=== PATIENT | female | born 1940 | race Caucasian/White ===

== ENCOUNTER → 2018-04-07 11:42 | Outpatient (CLI) | payer MEDICARE, BC, SELFPAY ==
[2018-04-07 11:52] VITALS: BP 131/68; PULSE 60; RESP 16; TEMP 36.8; BMI 35.5
[2018-04-07 12:51] VITALS: BP 139/67; PULSE 62; RESP 16; TEMP 36.5
[2018-04-07 14:43] VITALS: BP 123/63; PULSE 61; TEMP 36.6
[2018-04-07 14:58] VITALS: BP 143/72; PULSE 59; TEMP 36.6
== END ==
LOC: LAB 11:13 → MEDOUTP 11:26
PROVIDERS: Family Provider Student in an Organized Health Care Education/Training Program; PCP Student in an Organized Health Care Education/Training Program; Visit Provider Student in an Organized Health Care Education/Training Program
DX: D50.9 Iron deficiency anemia, unspecified (principal)
CPT/HCPCS: 36415; 36430; 86850; 86900; 86920; 86922; J7040; P9016; A4216

== ENCOUNTER 2018-06-18 11:00 | Outpatient (RCR) | payer MEDICARE, BC, SELFPAY ==
--- NOTE | 2018-04-19 11:35 | HP.PTEVAL ---
Patient's Visit Information ALANNA MOSHER is a 78 year old F referred to Physical Therapy by Mark Jaime with a diagnosis of Sciatica. Date of Evaluation: 04/19/18 Physical Therapist: Toshia Ray - Visit Plan Frequency: 2x /Week Duration: 4 Weeks Plan: Focus on core s/s - Subjective Subjective: Sciatic nerve pain that started in January when she was in [place]. Dr. Jaime put her on Prednisone which helped. In the afternoon and evening its really bad. Left sided-- pain is locate din the hip and goes to the ankle on the outside of the leg. Use to take 2 Aleve in the AM- but now she has to be Iron pills intead. Sleep: when she lays down she is okay- but when she is up and moving is when it bothes her. Best: 0/10 Eases: sitting, laying down, Worst: 8/10 Agg: being on her feet for long periods of time, going up/down stais she needs to hang on. She was walking with a cane in [place] but it doesn't do that now. Use to work out at [employer] but she hasn;t been due to worries of increasing pain. Thinks that standing on one foot really hurt it [facility] [place]. No back pain associate with this- or ever. She had x-rays of the hip and the back nd they both showed significant arthritis- the discs are flat. No N/T in the feet- describes the pain as dull and achy with shooting at the end of the day. Does not want to do aquatic therapy. She would like to get back to [employer]- the medium one where you sit and stand. PMHx: HTN. Cholesterol Meds: zocor and can't remember the names of the others. Normal day for her is a lot of sitting- sedentary lifestyle. Fully I and does still drive- lives alone. - Objective Posture: FH, RS, Increased kyphosis- decreased lumbar lordosis. Gait: antalgic- decreased stance time bilateral with wide RAZIA-flat foot strike. HR/TR: able with UE A for balance. SLS: WS but unable to SLS- requires UE A. ROM: Lumbar: flexion: hands to knees with discomfort, extn: neutral, SB and rotation: WFL, Hip: WNL, Knee: WNL, Ankle: WNL. Sensation/Reflex: WNL. Strength: Ankle: 5/5, Knee: 4+/5, Hip: 4/5 Core:poor. Flex: HS: moderate, Gastroc: moderate. Bridge increased s/s down LE- when stopped the pain went away immediatly. Dural Signs: positive on the left. Slump Test:positive on the left - Goals Goal 1:: Patient will be I with HEP and progression Goal Time Frame: 4-6 Weeks Goal 2:: Patient will maintain proper posture t/o tx session to demo increased core s/s Goal Time Frame: 4-6 Weeks Goal 3:: Patient will report 0/10 pain in the left LE for 1 week Goal Time Frame: 4-6 Weeks - Rehabilitation Potential Physical Therapy Diagnosis: Patient presents with hypomobility- she has decreased strength and muscular endurnace laeding to poor posture and increased pain Rehabilitation Potential: Fair - Anticipated Interventions Patient/Client Instruction: Educate patient on: Benefits of Fitness Program For the Purpose of:: To improve ability to perform ADL's Therapeutic Exercise to Include: Strength training, Endurance training, Body mechanics, Postural training, Flexibilty training, Dynamic Lumbar Stabilization, Scapular Strength/Stabilization For the Purpose of:: To improve muscle performance and motor function TENS: Yes Cryotherapy (ice pack, ice massage): Yes Thermo therapy (hot pack): Yes Ultrasound (thermal/non thermal): Yes For the Purpose of:: To decrease pain Thank you for the opportunity to evaluate your patient. For Medicare and Medicare HMO plans, please review the plan of care and approve it. It will need to be FAXED BACK to us at [phone] for Medicare purposes. Please let me know if there are questions or concerns regarding this plan of care. Physician Signature: Date:
--- NOTE | 2018-05-27 16:40 | HP.PTREVAL_ITS ---
Mark Jaime, It has been my pleasure to treat ALANNA MOSHER over the last 8 visits for Sciatica. Please see the progress note below for an update on the physical therapy plan of care! Subjective: Patient reports that she went to [place] yesterday and she was able to do more then had to sit down throughout. When she rests for awhile she can walk further. Pain is located on the hip in the left side down to the knee. Was doing silver sneakers before (Nustep, hip abd, add, leg press, back extn). Objective/Function: Posture: FH, RS, Increased kyphosis- decreased lumbar lordosis. Gait: antalgic- decreased stance time bilateral with wide RAZIA-flat foot strike bilaterally. HR/TR: able with UE A for balance. SLS: WS but unable to SLS- requires UE A from plinth. ROM: Lumbar: flexion: hands to knees with discomfort, extn: neutral, SB and rotation: WFL, Hip: WNL, Knee: WNL, Ankle : WNL. Sensation/Reflex: WNL. Strength: Ankle: 5/5, Knee: 4+/5, Hip: 4/5 Core: fair. Flex: HS: moderate, Gastroc: moderate. Dural Signs: positive on the left. Slump Test:positive on the left Plan Plan: Continue 2x2 for HEP with gym Goals Goal 1:: Patient will be I with HEP and progression Goal Time Frame: 4-6 Weeks Goal Progress: Progressing Goal 2:: Patient will maintain proper posture t/o tx session to demo increased core s/s Goal Time Frame: 4-6 Weeks Goal Progress: Progressing Goal 3:: Patient will report 0/10 pain in the left LE for 1 week Goal Time Frame: 4-6 Weeks Goal Progress: Not Progressing Anticipated Interventions Patient/Client Instruction: Educate patient on: Benefits of Fitness Program For the Purpose of:: To improve ability to perform ADL's Therapeutic Exercise to Include: Strength training, Endurance training, Body mechanics, Postural training, Flexibilty training, Dynamic Lumbar Stabilization , Scapular Strength/Stabilization For the Purpose of:: To improve muscle performance and motor function TENS: Yes Cryotherapy (ice pack, ice massage): Yes Thermo therapy (hot pack): Yes Ultrasound (thermal/non thermal): Yes For the Purpose of:: To decrease pain Please do not hesitate to contact me at [phone] by phone or Fax: if you have questions or concerns regarding this new plan of care! Sincerely, Toshia Ray
--- NOTE | 2018-06-21 07:12 | HP.PTDCSUM ---
HP - PT D/C Summary It has been my pleasure to treat ALANNA MOSHER under orders from Mark Jaime, for the diagnosis of Sciatica for a total of 12 visit(s). Discharge Date: Please see the following information for a summary of their discharge status. - Subjective Subjective: Got started on nustep on her own today prior to appt. DOING WELL TODAY THUS FAR PT REPORTS. - Pain LB Pain Intensity (Out of 10): Unrated - Objective Objective/Function: PT FEELS GOOD ABOUT INDEPENDENT PROGRAM AND FEELS READY FOR D/C. OVERALL PT FEELS SHE HAS BENEFITTED FROM P.T. AND REPORTS FEELING 75% IMPROVED. - Goals Goal 1:: Patient will be I with HEP and progression Goal Progress: Progressing Goal 2:: Patient will maintain proper posture t/o tx session to demo increased core s/s Goal Progress: Progressing Goal 3:: Patient will report 0/10 pain in the left LE for 1 week Goal Progress: Not Progressing - Plan Plan: PT IS D/C OF TODAY. SENT THER EX LOG WITH HER ALONG WITH PICS OF STRETCHES TO CONT WITH. - D/C Information If there are questions or concerns regarding this patient's physical therapy, please feel free to call me at [phone]. Thank you for the referral of this patient. Sincerely, Toshia Ray
== END 2018-06-18 19:00 | disposition home or self-care (01) ==
LOC: PT 11:00
PROVIDERS: Family Provider Student in an Organized Health Care Education/Training Program; PCP Student in an Organized Health Care Education/Training Program; Visit Provider Student in an Organized Health Care Education/Training Program
DX: M54.42 Lumbago with sciatica, left side (principal); M47.896 Other spondylosis, lumbar region; M79.652 Pain in left thigh; M51.36 Other intervertebral disc degeneration, lumbar region; G89.29 Other chronic pain
CPT/HCPCS: 97110; 97161; 97164; G8978; G8979

== ENCOUNTER 2019-05-21 10:19 | Emergency (ER) | payer MEDICARE, BC, SELFPAY ==
[2019-05-21 10:20] VITALS: BP 160/78; PULSE 78; RESP 18; TEMP 36.6; O2SAT 96; BMI 36.6
--- NOTE | 2019-05-21 10:39 | ED.DCSUM_ITS ---
- ER Visit Summary Date of Service: 05/21/19 Chief Complaint: Blood in stool History of Present Illness: The patient is a 79 F states that she was in her normal state of health yesterday. She the country club and had a [place] consisted of cooked shrimp. She returned home and around 8 PM developed abdomi nal cramping in the suprapubic left lower quadrant area. She states she went to the bathroom had a normal bowel movement. The cramps continued and she had a small bowel movement around midnight. Throughout the night she had intermittent cramps that would awaken her. She states that this morning she had a large movement that consisted of all red blood followed by a smaller one and then a third episode with very little blood and no stool. She has not had any further abdominal cramping and no pain. She is never had a prior colonoscopy. She states that she is never had a diagnosis of colitis or diverticulitis. She used to take aspirin but stopped. 6 months ago she had a blood transfusion due to iron deficiency anemia. No lightheadedness or syncope. Color is not different than normal. She denies any history of AAA repair. No recent indigestion or reflux disease history. Physical Examination: Afebrile vital signs are stable Gen: Well-nourished well-developed Head: Normocephalic atraumatic Eyes: Perrl EOMI ENT: TMs clear no rhinorrhea moist mucous membranes Neck: Supple no lymphadenopathy no JVD nontender CVS: Regular rate rhythm no murmurs normal S1-S2 Respiratory: No distress clear to auscultation bilaterally chest nontender Abdomen: Soft nontender nondistended normal bowel sounds no masses Rectal: Small amount of residual bright red blood on the buttocks otherwise rectal exam showed no stool and no blood on digital exam. There is no noted anal fissure. Small anal tag. No masses. Back: Nontender Extremity: Nontender no edema Skin: Normal color no rash Neuro: alert orientated ?3 CN II-XII intact normal strength sensation Psych: Normal affect normal mood Test Results: CBC BMP was obtained as well as coags. These were negative. Emergency Department Course and Treatment: Patient was watched for about 2-1/2 hours. She has had no further bleeding. No abdominal cramping. At this point the exact etiology of her bleeding is unclear. However at this point she appears stable with a stable hemoglobin and normal blood pressures and no further bleeding. Patient was advised the possible etiologies such as diverticular bleeding, AV malformation, versus infectious. Patient was advised that if she develops further symptoms she should return for repeat examination. Impression: 1. Stable lower GI bleed This note was generated with [employer] dictation software. It may contain incorrect words, spelling, and punctuation that were not noted in review of the chart prior to signing ED Disposition - Plan for ED Patient: Disposition: Home or Assisted Living Instructions: When You Have Gastrointestinal (GI) Bleeding Referrals: Mark Jaime, [Primary Care Provider] - As soon as possible (discuss colonoscopy )
[2019-05-21 11:00] LABS: Absolute Lymphocyte Count 1.72 X10^3/ul (0.83-4.51); Basophil# 0.02 X10^3/uL; Basophil% 0.2 % (0-1); Eosinophil# 0.06 X10^3/uL; Eosinophils% 0.6 % (0-5); Hematocrit 40.8 % (37-47); Hemoglobin 13.5 g/dl (12.0-15.0); Lymphocyte # 1.72 X10^3/ul (4.0); Lymphocyte % 16.1 % (19-41); Mean Corp Hgb Conc 33.1 g/gl (32-36); Mean Corpuscular Hgb 30.6 pg (27.0-32.0); Mean Corpuscular Volume 92.5 fL (81-99); Mean Platelet Vol. 10.9 fl (6.2-12.0); Monocyte# 0.89 X10^3/uL; Monocyte% 8.3 % (0-10); Neutrophil # 7.97 X10^3/uL (2.7-7.7); Neutrophil % 74.7 % (47-70); POSITIVE COUNT NO; POSITIVE DIFFERENTIAL NO; POSITIVE MORPHOLOGY NO; Platelet Count 203 K/mm3 (150-450); RBC Distribution Width CV 14.2 % (11.6-14.6); RBC Distribution Width SD 47.2 fl (35.1-43.9); Red Blood Count 4.41 M/mm3 (4.2-5.4); White Blood Count 10.7 K/mm3 (4.4-11.0)
[2019-05-21 11:22] LABS: Anion Gap 5 (5-15); BUN 19 mg/dL (7-18); BUN/Creat Ratio 19.3 RATIO (10-20); Chloride 107 mmol/L (98-107); Creatinine, Serum 0.98 mg/dL (0.55-1.02); EST Glomerular Filtration Rate 58 mL/min (>60); Est Glom Filt Rate - Afr Amer 70 mL/min (>60); Estimated Creatinine Clearance 42.15 ml/min; Glucose 115 mg/dL (74-106); Potassium 4.5 mmol/L (3.5-5.1); Sodium Level 139 mmol/L (136-145)
[2019-05-21 11:31] LABS: Partial Thromboplast Time 28.7 Seconds (24.1-36.2); Prothrombin Time (Protime)PT. 12.9 SECONDS (11.7-14.9)
[2019-05-21 11:48] VITALS: BP 155/83; BP 164/73; PULSE 68; PULSE 87
[2019-05-21 13:25] VITALS: BP 155/83; PULSE 87; RESP 19
== END 2019-05-21 13:26 | disposition home or self-care (01) ==
PROVIDERS: Emergency Provider Emergency Medicine; Family Provider Student in an Organized Health Care Education/Training Program; PCP Student in an Organized Health Care Education/Training Program
DX: K92.1 Melena (principal); K64.4 Residual hemorrhoidal skin tags; R10.32 Left lower quadrant pain; D50.9 Iron deficiency anemia, unspecified; I10 Essential (primary) hypertension; E78.00 Pure hypercholesterolemia, unspecified; Z79.899 Other long term (current) drug therapy; Z87.891 Personal history of nicotine dependence
CPT/HCPCS: 80048; 85025; 85610; 85730; 99284; A4216

== ENCOUNTER 2022-07-02 10:30 | Outpatient (RCR) | payer MEDICARE, BC, SELFPAY ==
--- NOTE | 2022-05-16 10:56 | HP.PTEVAL_ITS ---
Patient's Visit Information ALANNA MOSHER is a 82 year old F referred to Physical Therapy by Dr. Mark Jaime DO with a diagnosis of CHRONIC DARRION KNEE PAIN AND LEG WEAKNESS. Date of Evaluation: 05/16/22 Physical Therapist: Jessica Jones PT, Cert MDT - Visit Plan Frequency: 2-3x /Week Duration: 4-6 Weeks Plan: GAIT AND BALANCE TRAINING (NO SLS ACTIVITIES PER PATIENT REQUEST). ASSISTIVE DEVICE TRAINING FOR SAFETY. CORE STABILITY STRENGTHENING. DARRION LE ROM, STRETCHING AND STRENGTHENING TO HELP MEET SET GOALS. GIVE GYM AND HEP TOLERATED. - Subjective Work/Leisure: RETIRED. 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 LIVES IN [place] 6 MONTHS A YEAR. Present symptoms: DARRION KNEE PAIN AND LEG WEAKNESS. PATIENT DENIES DARRION LE NUMBNESS AND TINGLING. Present since: CHRONIC. Pain Scale: WORST 5/10, LEAST 0/10. Currently: 0/10. Commenced as a result of: ARTHRITIS. Worse: TRYING TO BEND KNEES HURT, STANDING AND WALKING IS DIFFICULT, RISING FROM SITTING IS DIFFICULT TOO. HARD TO GET OUT OF BED. DIFFICULTY INITIATING GAIT AFTER SITTING. Better: SITTING. Disturbed sleep: NOT REALLY. SOMETIMES WAKES UP WITH IT. Previous history/Previous treatment: DARRION KNEE INJECTIONS X 2, 6 MONTHS APART AND LAST INJECTIONS WERE 3 WEEKS AGO. THEY HELP THE PAIN AT NIGHT BUT DOESN'T HELP MVMT. NO KNEE SURGERIES. SHE REPORTS TKR'S HAVE BEEN RECOMMENDED BUT SHE REFUSES. TAKES TYLONOL DAILY FOR THE PAIN. Gait: PATIENT REPORTS SHE HAS TO GO SLOW WHEN SHE WALKS AND SHE TRIES NOT TO SHUFFLE. DIFFICULTY INITIATING GAIT AFTER SITTING. USES CANE TO GO TO [employer] BUT OTHERWISE DOES NOT USE IT. NO FALLS. Accidents: NO. Unexplained weight loss: NO. Imaging: DARRION KNEES BONE ON BONE PER PATIENT REPORT. 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 HTN, HIGH CHOLESTEROL. NOT DIABETIC. NO CANCER. NO STROKE. NO HEART ATTACK OR HEART PROCEEDURES. OTHER: DOES NOT WANT TO TRY ANY SINGLE LEG STANCE EX'S. - Objective Sitting/Standing Posture: POOR. FH. RSH'S. INCREASED KYPHOSIS. INCREASED TRUNK FLEXION. Active Correction of posture: NE. Other Observations: THIS PATIENT AMBULATES INDEP'LY INTO PT WITHOUT ANY ASSISITVE DEVICES OR LOB BUT SHE WALKS VERY SLOW WITH VERY SHORT DARRION STRIDE LENGTH. DECREASED DARRION KNEE FLEXION DURING DARRION SWING PHASES OF GAIT. DECREASED DARRION ARM SWING. Sensory deficit: DARRION LE LIGHT TOUCH SENSATION IS GROSSLY INTACT AND SYMMETRICAL. ROM deficit: DECREASED DARRION LE HIP ROM, KNEE AND ANKLE ROM. TIGHT GASTROC SOLEUS COMPLEX'S. R KNEE AROM IN SUPINE WITH A HEEL SLIDE = -20 DEG EXT TO 110 DEG FLEX. L KNEE: -15 DEG EXT TO 93 DEG FLEX. Motor deficit: DARRION LE'S GROSSLY 4/5 WITH MMT'ING IN SITTING. Lumbar mvmt loss: flex - MOD TO LEONARDA. ext - LEONARDA. R SG - LEONARDA. L SG - LEONARDA. PATIENT DENIES PAIN WITH LUMBAR ROM TESTING. Core strength: POOR. Palpation: NO ACUTE LUMBAR OR KNEE TENDERNESS WITH LIGHT PALPATION. OTHER: PATIENT DEMO'D INDEP SET UP AND USE OF NUSTEP IN GYM. SEAT #11 IS COMFORTABLE. SEAT #12 GIVES PATIENT TOO MUCH KNEE EXTENSION STRETCH AND SEAT #9 GIVES A TOLERABLE GENTLE KNEE FLEXION STRETCH. INSTRUCTED PATIENT TO CONTINUE INDEP NUSTEP WITH SEAT ON #11 AND #9. - Balance/Special Test Scores Lower Extremity Functional Score: 14 TUG Test Time Seconds: 25.25 30 Second Chair Rise Test Seconds: 3 - Goals Goal 1:: PATIENT WILL COMPLETE TUG IN < 20 SECS TO DEMONSTRATE IMPROVED GAIT STABILITY Goal Time Frame: 4-6 Weeks Goal 2:: PATIENT WILL COMPLETE 5 STANDS IN 30 SECS TO DEMONSTRATE IMPROVED FUNCTIONAL STRENGTH Goal Time Frame: 4-6 Weeks Goal 3:: PATIENT WILL BE INDEP WITH A HOME EX PROGRAM AND GYM EX PROGRAM FOR CONTINUED IMPROVEMENT ONCE FORMAL PHYSICAL THERAPY CONCLUDES. Goal Time Frame: 4-6 Weeks Goal 4:: INCREASE FUNCTIONAL DARRION LE ROM TO EASE ADL'S Goal Time Frame: 4-6 Weeks Goal 5:: INCREASE FUNCTIONAL STRENGTH OF DARRION LE'S TO EASE ADL'S Goal Time Frame: 4-6 Weeks - Anticipated Interventions Patient/Client Instruction: Educate patient on: Condition, Plan of Care, Risk Factors For the Purpose of:: To improve self management Therapeutic Exercise to Include: Strength training, Balance training, Flexibilty training, Gait and locomotor training, Neuromotor development, In an aquatic setting, Dynamic Lumbar Stabilization For the Purpose of:: To decrease pain, To improve muscle performance and motor function, To increase tolerance to activity/condition/position, To improve performance and independence with ADL's, To improve ability of physical actions for home/community/work/leisure, To improve gait and locomotor functions, To improve safety Cryotherapy (ice pack, ice massage): Yes Thermo therapy (hot pack): Yes Ultrasound (thermal/non thermal): Yes For the Purpose of:: To decrease pain, To improve nutrient delivery to tissue Thank you for the opportunity to evaluate your patient. For Medicare and Medicare HMO plans, please review the plan of care and approve it. It will need to be FAXED BACK to us at [phone] for Medicare purposes. For Medicare only, by signing this I certify the plan of care. Please let me know if there are questions or concerns regarding this plan of care. Physician Signature: Date:
--- NOTE | 2022-06-06 11:31 | HP.PTREVAL ---
Dr. Mark Jaime, DO, It has been my pleasure to treat ALANNA MOSHER over the last 10 visits for CHRONIC DARRION KNEE PAIN AND LEG WEAKNESS. Please see the progress note below for an update on the physical therapy plan of care! Subjective: PATIENT REPORTS THERAPY IS HELPING HER. SHE STATES SHE CAN GET OUT OF A CHAIR BETTER AND THAT SHE ISN'T SHUFFLING MUCH. STATES SHE WOULD LIKE TO CONTINUE PT IF POSSIBLE. PATIENT REPORTS SOME SORENESS IN THE BACK OF HER KNEES AFTER LAST VISIT THAT SHE RELATES TO STRETCHING ON THE SLANT BOARD. Objective/Function: PATIENT WAS SEEN TODAY FOR RE-ASSESSMENT OF PROGRESS TOWARD THE SET PT GOALS AND THE NEED FOR FURTHER PHYSICAL THERAPY VS READINESS FOR DISCHARGE. THIS PATIENT IS A GOOD CANDIDATE TO CONTINUE PT BASED ON PROGRESS MADE AND ROOM FOR FURTHER IMPROVEMENT. PATIENT IS AGREEABLE. UPON EXAM TODAY: ROM deficit: DECREASED DARRION LE HIP ROM, KNEE AND ANKLE ROM. TIGHT GASTROC SOLEUS COMPLEX'S. R KNEE AROM IN SUPINE WITH A HEEL SLIDE = -18 DEG EXT TO 110 DEG FLEX. L KNEE: -13 DEG EXT TO 109 DEG FLEX. Motor deficit: DARRION LE'S GROSSLY 4/5 WITH MMT'ING IN SITTING. Plan Plan: DECREASE INTENSITY OF CALF STRETCHING. CONT 2X'S A WK X 10 VISITS. GAIT AND BALANCE TRAINING (NO SLS ACTIVITIES WITHOUT UE ASSIST PER PATIENT REQUEST). ASSISTIVE DEVICE TRAINING FOR SAFETY. CORE STABILITY STRENGTHENING. DARRION LE ROM, STRETCHING AND STRENGTHENING TO HELP MEET SET GOALS. GIVE GYM EXCERCISES AND HEP TOLERATED. Balance/Gait/Functional tests - Balance/Special Test Scores Lower Extremity Functional Score: 30 TUG Test Time Seconds: 25.25 Tug Test: 20-30sec.=variable mobility 30 Second Chair Rise Test Seconds: 3 Goals Goal 1:: PATIENT WILL COMPLETE TUG IN < 20 SECS TO DEMONSTRATE IMPROVED GAIT STABILITY Goal Time Frame: 4-6 Weeks Goal Progress: Progressing Goal 2:: PATIENT WILL COMPLETE 5 STANDS IN 30 SECS TO DEMONSTRATE IMPROVED FUNCTIONAL STRENGTH Goal Time Frame: 4-6 Weeks Goal Progress: Progressing Goal 3:: PATIENT WILL BE INDEP WITH A HOME EX PROGRAM AND GYM EX PROGRAM FOR CONTINUED IMPROVEMENT ONCE FORMAL PHYSICAL THERAPY CONCLUDES. Goal Time Frame: 4-6 Weeks Goal Progress: Progressing Goal 4:: INCREASE FUNCTIONAL DARRION LE ROM TO EASE ADL'S Goal Time Frame: 4-6 Weeks Goal Progress: Progressing Goal 5:: INCREASE FUNCTIONAL STRENGTH OF DARRION LE'S TO EASE ADL'S Goal Time Frame: 4-6 Weeks Goal Progress: Progressing Anticipated Interventions Patient/Client Instruction: Educate patient on: Condition, Plan of Care, Risk Factors For the Purpose of:: To improve self management Therapeutic Exercise to Include: Strength training, Balance training, Flexibilty training, Gait and locomotor training, Neuromotor development, In an aquatic setting, Dynamic Lumbar Stabilization For the Purpose of:: To decrease pain, To improve muscle performance and motor function, To increase tolerance to activity/condition/position, To improve performance and independence with ADL's, To improve ability of physical actions for home/community/work/leisure, To improve gait and locomotor functions, To improve safety Cryotherapy (ice pack, ice massage): Yes Thermo therapy (hot pack): Yes Ultrasound (thermal/non thermal): Yes For the Purpose of:: To decrease pain, To improve nutrient delivery to tissue Please do not hesitate to contact me at [phone] by phone or if you have questions or concerns regarding this new plan of care! Sincerely, Jessica Jones, PT, Cert MDT
--- NOTE | 2022-07-02 13:33 | HP.PTDCSUM ---
It has been my pleasure to treat ALANNA MOSHER referred by Dr. Mark Jaime, DO, with the diagnosis of CHRONIC DARRION KNEE PAIN AND LEG WEAKNESS for a total of 18 visit(s). Discharge Date: Please see the following information for a summary of their discharge status. Subjective: Pt reports really no change since beginning PT. DARRION KNEES Pain Intensity (Out of 10): 3 % Improvement: 0 Objective/Function: B knee pain ranges from 3-7/10. B LE functional strength and ROM continue to improve. Tu.4 sec. Pt is I with HEP and will cont I Goal 1:: PATIENT WILL COMPLETE TUG IN < 20 SECS TO DEMONSTRATE IMPROVED GAIT STABILITY Goal Progress: Goal Met Goal 2:: PATIENT WILL COMPLETE 5 STANDS IN 30 SECS TO DEMONSTRATE IMPROVED FUNCTIONAL STRENGTH Goal Progress: Goal Met Goal 3:: PATIENT WILL BE INDEP WITH A HOME EX PROGRAM AND GYM EX PROGRAM FOR CONTINUED IMPROVEMENT ONCE FORMAL PHYSICAL THERAPY CONCLUDES. Goal Progress: Goal Met Goal 4:: INCREASE FUNCTIONAL DARRION LE ROM TO EASE ADL'S Goal Progress: Progressing Goal 5:: INCREASE FUNCTIONAL STRENGTH OF DARRION LE'S TO EASE ADL'S Goal Progress: Progressing Plan: Discharge to HEP If there are questions or concerns regarding this patient's physical therapy, please feel free to call me at [phone]. Thank you for the referral of this patient. Sincerely, Octavio Rose, PT, ATC Balance/Gait/Functional tests - Balance/Special Test Scores Lower Extremity Functional Score: 30 TUG Test Time Seconds: 25.25 Tug Test: 20-30sec.=variable mobility 30 Second Chair Rise Test Seconds: 3
== END 2022-07-02 19:00 | disposition home or self-care (01) ==
LOC: PT 10:30
PROVIDERS: PCP Student in an Organized Health Care Education/Training Program; Referring Provider Student in an Organized Health Care Education/Training Program; Visit Provider Student in an Organized Health Care Education/Training Program
DX: M25.561 Pain in right knee (principal); M25.562 Pain in left knee; M17.10 Unilateral primary osteoarthritis, unspecified knee; R29.898 Other symptoms and signs involving the musculoskeletal system; R26.89 Other abnormalities of gait and mobility; G89.29 Other chronic pain
CPT/HCPCS: 97110; 97162; 97164; 97530

== ENCOUNTER 2022-10-13 18:43 | Observation (INO) | payer MEDICARE, BC, SELFPAY ==
[2022-10-13 18:44] VITALS: BP 145/77; PULSE 68; RESP 16; TEMP 36.6; O2SAT 98; BMI 36.6
--- NOTE | 2022-10-13 18:55 | EKG12_ITS ---
Test Reason : DYSRHYTHMIA Blood Pressure : / mmHG Vent. Rate : 072 BPM Atrial Rate : 072 BPM P-R Int : 162 ms QRS Dur : 080 ms QT Int : 406 ms P-R-T Axes : -07 -29 031 degrees QTc Int : 444 ms Normal sinus rhythm Leftward axis Confirmed by GITA GARCÍA, YURY ([id number]), assistant editor CASSANDRA MUNGUIA ([id number]) on 10/15/2022 8:52:05 AM Referred By: HANNAH Confirmed By:YURY PELAYO MD
--- NOTE | 2022-10-13 20:26 | EX.ED.DYSGE1 ---
HPI History of Present Illness Chief Complaint: Syncope Narrative Narrative: Patient presents with a near syncopal episode, she was standing up, she got lightheaded, she stood down and then her daughter who is with her became somewhat unresponsive the patient however tells me that she was dazed and did not fully pass out and she remembers most of the events. She did not fall she did not hit her head she has no injuries. She is denying any chest pain or palpitations, she did feel lightheaded before this event and she was standing up. She has no nausea or vomiting no abdominal pain she has normal stools, nonbloody and no melena. No recent weight loss. No recent fevers or chills. She has no breathing difficulties or chest pain or pleuritic component she has no lower extremity edema or calf pain. She has no abdominal or back pain. Per daughter she thinks she passed out. [facility] Medical History (Updated 10/13/22 @ 22:[address] Indio Alvarez MD) Factor 5 Leiden mutation, heterozygous Former smoker Hyperlipidemia Hypertension Rheumatoid arthritis Home Medications ferrous sulfate 325 mg (65 mg iron) tablet (Iron (ferrous sulfate)) 325 mg PO DAILY 04/07/18 [History Last Taken Unknown] hydrochlorothiazide 25 mg tablet 25 mg PO DAILY 04/07/18 [History Last Taken Unknown] losartan 25 mg tablet 25 mg PO DAILY 04/07/18 [History Last Taken Unknown] multivit with mgxvwjkd-ngzj-MZ-lutein 8 mg iron-400 mcg-300 mcg tablet (Centrum Silver Women) 1 ea PO DAILY 04/07/18 [History Last Taken Unknown] simvastatin 20 mg tablet (Zocor) 20 mg PO DAILY 04/07/18 [History Last Taken Unknown] Probiotic 1 tab PO DAILY 05/21/19 [History Last Taken Unknown] ascorbic acid-ascorbate sodium (vitamin C) 500 mg oral wafer 500 mg PO DAILY 05/21/19 [History Last Taken Unknown] calcium carbonate 500 mg-vitamin D3 10 mcg (400 unit) chewable tablet 1 ea PO DAILY 05/21/19 [History Last Taken Unknown] cholecalciferol (vitamin D3) 50 mcg (2,000 unit) capsule 2,000 unit PO DAILY 05/21/19 [History Last Taken Unknown] cyanocobalamin (vitamin B-12) 500 mcg tablet 500 mcg PO DAILY@0800 05/21/19 [History Last Taken Unknown] Allergy/AdvReac Type Severity Reaction Status Date / Time No Known Allergies Allergy Verified 10/13/22 18:44 Social History Smoking Status: Former smoker ROS ROS ED ROS Narrative Past medical history: Reviewed, includes hypertension and hypercholesterolemia otherwise relatively healthy. Medications: Reviewed Social history: Noncontributory Review of systems: All systems negative except as indicated General: No fever. Lightheadedness in HPI Eyes: No visual changes ENT: No upper airway congestion, normal voice Neck: No neck pain Cardiovascular: No chest pain. No palpitation. Near syncope as in HPI Respiratory: No shortness of breath or cough Gastrointestinal: No abdominal pain, nausea vomiting or diarrhea Genitourinary: No dysuria Musculoskeletal: Denies myalgias no difficulty with ambulation Skin: No rash Neurological: No memory loss, confusion or any focal weakness Psych: No recent behavioral changes Hematologic: No easy bleeding or easy bruising EXAM Physical Exam Narrative Exam Narrative: Physical exam General: Well nourished, Well developed, No Acute Distress Head: Normocephalic, Atraumatic Eyes: Conjunctiva not pale ENT: Slightly dry mucous membranes Neck: Supple, Nontender, No lymphadenopathy Cardiovascular: Regular rate, Regular rhythm Respiratory: No distress, CTA bilaterally Abdomen: Soft, Nontender, Nondistended Back: Nontender, Normal Inspection. Negative for: CVA tenderness Extremities: Nontender, No edema Skin: Normal color, No rash Neurological: Alert, Normal Strength, Normal Sensation Psychological: Normal affect Const Vital Signs: 10/13/22 18:44 10/13/22 20:27 10/13/22 20:27 Temperature 97.9 F Temperature Source Temporal Pulse Rate 68 69 Pulse Rate [Lying] Pulse Rate [Sitting (for 1 minute prior to obtaining)] Pulse Rate [Standing (for 1 minute prior to obtaining)] Respiratory Rate 16 15 Respiratory Effort Respiratory Pattern Blood Pressure 145/77 H 156/67 H Blood Pressure [Lying] Blood Pressure [Sitting (for 1 minute prior to obtaining)] Blood Pressure [Standing (for 1 minute prior to obtaining)] Blood Pressure Mean 99 96 Blood Pressure Mean [Lying] Blood Pressure Mean [Sitting (for 1 minute prior to obtaining)] Blood Pressure Mean [Standing (for 1 minute prior to obtaining)] Pulse Ox 98 96 96 Oxygen Delivery Method Room Air 10/13/22 20:27 10/13/22 20:33 Temperature Temperature Source Pulse Rate Pulse Rate [Lying] 71 Pulse Rate [Sitting (for 1 minute prior to obtaining)] 69 Pulse Rate [Standing (for 1 minute prior to obtaining)] 80 Respiratory Rate Respiratory Effort Normal Respiratory Pattern Normal Blood Pressure Blood Pressure [Lying] 163/70 H Blood Pressure [Sitting (for 1 minute prior to obtaining)] 161/73 H Blood Pressure [Standing (for 1 minute prior to obtaining)] 167/84 H Blood Pressure Mean Blood Pressure Mean [Lying] 101 Blood Pressure Mean [Sitting (for 1 minute prior to obtaining)] 102 Blood Pressure Mean [Standing (for 1 minute prior to obtaining)] 111 Pulse Ox Oxygen Delivery Method MDM MDM Lab Data Labs: Laboratory Results - last 24 hr 10/13/22 10/13/22 10/13/22 20:15 20:15 22:01 WBC 9.2 RBC 3.71 L Hgb 11.7 L Hct 36.0 L MCV 97.0 MCH 31.5 MCHC 32.5 RDW Std Deviation 46.9 H RDW Coeff of Linda 13.0 Plt Count 194 MPV 10.6 Immature Gran % (Auto) 0.400 Neut % (Auto) 73.3 H Lymph % (Auto) 17.6 L [place] % (Auto) 7.4 Eos % (Auto) 1.0 Baso % (Auto) 0.3 Absolute Neuts (auto) 6.8 Absolute Lymphs (auto) 1.63 Nucleated RBC % 0 Sodium 141 Potassium 4.6 Chloride 110 H Carbon Dioxide 26.0 Anion Gap 5 BUN 35 H Creatinine 1.47 H Estim Creat Clear Calc 25.63 Est GFR (MDRD) Af Amer 44 L Est GFR (MDRD) Non-Af 36 L BUN/Creatinine Ratio 23.8 H Glucose 145 H Calcium 10.0 Total Bilirubin 0.40 AST 27 ALT 20 Alkaline Phosphatase 56 Troponin I High Sens 7 Total Protein 7.4 Albumin 3.9 Globulin 3.5 Albumin/Globulin Ratio 1.1 Urine Color Yellow Urine Clarity Sl. Cloudy Urine pH 5.0 Ur Specific [place] 1.020 Urine Protein 15 H Urine Glucose (UA) Normal Urine Ketones Negative Urine Occult Blood 10 H Urine Nitrite Negative Urine Bilirubin Negative Urine Urobilinogen Normal Ur Leukocyte Esterase 500 H Urine RBC 0 SEEN Urine WBC 0-5 SEEN Ur Squamous Epith Cells 0 SEEN Calcium Oxalate Crystal 2+ Urine Bacteria 0 SEEN Urine Mucus 0 SEEN Radiography Diagnostic Testing: Clinical Impression(s) from Imaging Studies Chest X-Ray 10/13/22 20:49 IMPRESSION: No acute findings in the chest. Electronically Signed: John Vazquez MD at 21:16 EST Reading Location ID and State: [facility] / [place] Tel , Service support , EKG Initial EKG: Comments: Sinus rhythm with a rate of 72. Normal MT and QTc intervals. No ischemic changes. Interpreted by emergency Dr. Treatment and Re-Evaluation Narrative: Patient's symptoms are concerning especially that the patient has negative orthostatics. The work-up is negative but I do believe she needs an echocardiogram and overnight monitoring. I will admit her. Discharge Plan Triage Chief Complaint: Syncope ED Provider: Indio Alvarez Dx/Rx/DC Orders Clinical Impression: Syncope, Weakness, History of chronic hypertension Prescriptions: No Action simvastatin [Zocor] 20 MG tablet 20 mg PO DAILY ferrous sulfate [Iron (ferrous sulfate)] 325 MG tablet 325 mg PO DAILY losartan 25 MG tablet 25 mg PO DAILY hydrochlorothiazide 25 MG tablet 25 mg PO DAILY oqwfgnck-erf-tsqt-FA-lutein [Centrum Silver Women] 1 EACH tablet 1 ea PO DAILY cyanocobalamin (vitamin B-12) 500 MCG tablet 500 mcg PO DAILY@0800 calcium carbonate-vitamin D3 1 EACH tablet,chewable 1 ea PO DAILY cholecalciferol (vitamin D3) 2,000 UNIT capsule 2,000 unit PO DAILY ascorbic acid-ascorbate sodium 500 MG wafer 500 mg PO DAILY Probiotic 1 tab PO DAILY Primary Care Provider: Mark Jaime Referrals: Mark Jaime DO [Primary Care Provider] - Disposition Disposition: Acute Care Hospital [facility]
[2022-10-13 20:27] VITALS: BP 156/67; PULSE 69; RESP 15; O2SAT 96
[2022-10-13 20:33] VITALS: BP 161/73; BP 163/70; BP 167/84; PULSE 69; PULSE 71; PULSE 80
[2022-10-13 20:47] LABS: Absolute Lymphocyte Count 1.63 X10^3/uL (0.83-4.51); Absolute Neutrophil Count 6.8 X10^3/uL (2.0-7.7); Basophil# 0.03 X10^3/uL; Basophil% 0.3 % (0-1); Eosinophil# 0.09 X10^3/uL; Hemoglobin 11.7 g/dL (12.0-15.0); Lymphocyte # 1.63 X10^3/ul (0.83-4.51); Lymphocyte % 17.6 % (19-41); Mean Corp Hgb Conc 32.5 g/dL (32-36); Mean Corpuscular Hgb 31.5 pg (27.0-32.0); Mean Platelet Vol. 10.6 fl (6.2-12.0); Monocyte# 0.68 X10^3/uL; Monocyte% 7.4 % (0-10); NRBC Flagged by Analyzer 0 % (0-5); Neutrophil # 6.77 X10^3/uL (2.7-7.7); Neutrophil % 73.3 % (47-70); Platelet Count 194 K/mm3 (150-450); RBC Distribution Width SD 46.9 fl (35.1-43.9); Red Blood Count 3.71 M/mm3 (4.2-5.4); White Blood Count 9.2 K/mm3 (4.4-11.0)
--- NOTE | 2022-10-13 20:49 | RAD_ITS ---
EXAM: XR CHEST, 1 VIEW CLINICAL INDICATION: weakness TECHNIQUE: Frontal view of the chest. This report was created using [employer] report generation technology. COMPARISON: None. FINDINGS: LUNGS AND PLEURAL SPACES: There is a retrocardiac opacity compatible with a hiatal hernia. No pneumothorax. No effusion. HEART: Unremarkable. Cardiac silhouette not enlarged. MEDIASTINUM: See above. BONES/JOINTS: Unremarkable. SOFT TISSUES: Unremarkable. RAD/Chest 1 View (Portable) IMPRESSION: No acute findings in the chest. Electronically Signed: John Vazquez MD at 21:16 EST ,
[2022-10-13 21:04] LABS: ALB/GLOB Ratio 1.1 RATIO (0.9-2.4); AST(SGOT) 27 U/L (15-37); Alanine Aminotransfer ALT/SGPT 20 U/L (13-56); Albumin, Serum 3.9 g/dL (3.2-5.0); Alkaline Phosphatase 56 U/L (45-117); Anion Gap 5 (5-15); BUN 35 mg/dL (7-18); BUN/Creat Ratio 23.8 RATIO (10-20); Chloride 110 mmol/L (98-107); Creatinine, Serum 1.47 mg/dL (0.55-1.02); EST Glomerular Filtration Rate 36 mL/min (>60); Est Glom Filt Rate - Afr Amer 44 mL/min (>60); Estimated Creatinine Clearance 25.63 ml/min; Globulin 3.5 g/dL (2.2-4.2); Glucose 145 mg/dL (74-106); Potassium 4.6 mmol/L (3.5-5.1); Protein, Total 7.4 g/dL (6.4-8.2); Sodium Level 141 mmol/L (136-145); Troponin-I HS 7 pg/mL (3.0-54.0)
[2022-10-13 22:06] LABS: Bacteria 0 SEEN /hpf (None Seen); Mucous, Urine 0 SEEN /hpf (<or=2+); Red Blood Cells-Urine 0 SEEN /hpf (0-5); Squamous Epithelial Cells - UA 0 SEEN /hpf (5-10)
[2022-10-13 22:11] LABS: Color, Urine Yellow (Yellow); Glucose, Dipstick Normal (Normal); Ketone-Dipstick Negative (Negative); Leukocyte Esterase-Dipstick 500 /ul (Negative); Nitrite-Dipstick Negative (Negative); Occult Blood-Urine 10 /ul (Negative); Protein-Dipstick 15 mg/dl (Negative); Urine Bilirubin Dipstick Negative (Negative); Urine Clarity Sl. Cloudy (Clear); Urine Urobilinogen Normal (Normal)
[2022-10-13 22:20] LABS: White Blood Cells 0-5 SEEN /hpf (0-5)
[2022-10-13 22:21] LABS: Calcium Oxalate Crystals Ur 2+ /hpf (<or=2+)
[2022-10-13 22:42] VITALS: BP 131/67; PULSE 65; RESP 16; TEMP 37; O2SAT 94
--- NOTE | 2022-10-13 22:52 | PCM.HP.STD ---
HPI - General General Date of Admission: 10/13/22 Date of Service: 10/13/22 Chief Complaint: Syncopal episode HPI Narrative ALANNA MOSHER, is a 82 F who presents to the emergency room following an episode of passing out while at home. Patient states she has been on her feet all day working and preparing to get ready to go to [place] for the winter and she noticed as she was standing for prolonged period of time she became dizzy lightheaded and with her daughter watching she collapsed into the chair and passed out according to the daughter. Her eyes were rolling back in her head and she was not responsive for a brief period of time. Then she came to and she was breathing quickly as she recovered and then became alert and back to her baseline. Patient denies any chest pain, no shortness of breath no fevers or chills, no recent illnesses and denies this has ever happened to her before. She does admit to some anxiety over her upcoming trip to [place] and thinks she may have been pushing too hard. She will be admitted overnight for observation and an echocardiogram ordered for the morning due to her syncopal episode and her impending trip to [place] next week. [facility] Medical History (Updated 10/13/22 @ 22:[address] Indio Alvarez MD) Factor 5 Leiden mutation, heterozygous Former smoker Hyperlipidemia Hypertension Rheumatoid arthritis Home Medications ferrous sulfate 325 mg (65 mg iron) tablet (Iron (ferrous sulfate)) 325 mg PO DAILY 04/07/18 [History Last Taken Unknown] losartan 25 mg tablet 50 mg PO DAILY 04/07/18 [History Last Taken Unknown] multivit with gdgcqkut-zqve-BJ-lutein 8 mg iron-400 mcg-300 mcg tablet (Centrum Silver Women) 1 ea PO DAILY 04/07/18 [History Last Taken Unknown] simvastatin 20 mg tablet (Zocor) 20 mg PO DAILY 04/07/18 [History Last Taken Unknown] Probiotic 1 tab PO DAILY 05/21/19 [History Last Taken Unknown] ascorbic acid-ascorbate sodium (vitamin C) 500 mg oral wafer 500 mg PO DAILY 05/21/19 [History Last Taken Unknown] calcium carbonate 500 mg-vitamin D3 10 mcg (400 unit) chewable tablet 1 ea PO DAILY 05/21/19 [History Last Taken Unknown] cholecalciferol (vitamin D3) 50 mcg (2,000 unit) capsule 2,000 unit PO DAILY 05/21/19 [History Last Taken Unknown] cyanocobalamin (vitamin B-12) 500 mcg tablet 500 mcg PO DAILY@0800 05/21/19 [History Last Taken Unknown] furosemide 20 mg tablet 20 mg PO DAILY PRN Edema 10/13/22 [History Last Taken Unknown] Allergy/AdvReac Type Severity Reaction Status Date / Time No Known Allergies Allergy Verified 10/13/22 18:44 Social History Smoking Status: Former smoker ROS Constitutional Constitutional: Denies chills, fever(s) or weakness Eyes Eyes: Denies blurry vision or change in vision ENT HEENT: Denies abnormal hearing Cardiovascular Cardiovascular: Reports syncope; Denies chest pain Respiratory/Chest Respiratory/Chest: Denies shortness of breath at rest or shortness of breath with exertion Gastrointestinal Gastrointestinal: Denies abdominal pain Genitourinary Genitourinary: Denies dysuria Musculoskeletal Musculoskeletal: Denies back pain Integumentary Integumentary: Denies dry skin Neurologic Neurologic: Denies abnormal gait Psychiatric Psychiatric: Reports anxiety Vital Signs Vital Signs Vital Signs: 10/13/22 18:44 10/13/22 20:27 10/13/22 20:27 Temperature 97.9 F Temperature Source Temporal Pulse Rate 68 69 Pulse Rate [Lying] Pulse Rate [Sitting (for 1 minute prior to obtaining)] Pulse Rate [Standing (for 1 minute prior to obtaining)] Respiratory Rate 16 15 Respiratory Effort Respiratory Pattern Blood Pressure 145/77 H 156/67 H Blood Pressure [Lying] Blood Pressure [Sitting (for 1 minute prior to obtaining)] Blood Pressure [Standing (for 1 minute prior to obtaining)] Blood Pressure Mean 99 96 Blood Pressure Mean [Lying] Blood Pressure Mean [Sitting (for 1 minute prior to obtaining)] Blood Pressure Mean [Standing (for 1 minute prior to obtaining)] Pulse Ox 98 96 96 Oxygen Delivery Method Room Air 10/13/22 20:27 10/13/22 20:33 10/13/22 22:42 Temperature Temperature Source Pulse Rate 65 Pulse Rate [Lying] 71 Pulse Rate [Sitting (for 1 minute prior to obtaining)] 69 Pulse Rate [Standing (for 1 minute prior to obtaining)] 80 Respiratory Rate 16 Respiratory Effort Normal Respiratory Pattern Normal Blood Pressure 131/67 H Blood Pressure [Lying] 163/70 H Blood Pressure [Sitting (for 1 minute prior to obtaining)] 161/73 H Blood Pressure [Standing (for 1 minute prior to obtaining)] 167/84 H Blood Pressure Mean 88 Blood Pressure Mean [Lying] 101 Blood Pressure Mean [Sitting (for 1 minute prior to obtaining)] 102 Blood Pressure Mean [Standing (for 1 minute prior to obtaining)] 111 Pulse Ox 94 Oxygen Delivery Method Room Air 10/13/22 22:42 Temperature 98.6 F Temperature Source Temporal Pulse Rate 65 Pulse Rate [Lying] Pulse Rate [Sitting (for 1 minute prior to obtaining)] Pulse Rate [Standing (for 1 minute prior to obtaining)] Respiratory Rate 16 Respiratory Effort Respiratory Pattern Blood Pressure 131/67 H Blood Pressure [Lying] Blood Pressure [Sitting (for 1 minute prior to obtaining)] Blood Pressure [Standing (for 1 minute prior to obtaining)] Blood Pressure Mean 88 Blood Pressure Mean [Lying] Blood Pressure Mean [Sitting (for 1 minute prior to obtaining)] Blood Pressure Mean [Standing (for 1 minute prior to obtaining)] Pulse Ox 94 Oxygen Delivery Method Room Air Weight Weight: 220 lb Body Mass Index (BMI) 36.6 Physical Exam Const alert, oriented x3, no apparent distress and well nourished General Appearance: cooperative HEENT normocephalic and head/scalp atraumatic Eyes PERRL and EOMs intact bilaterally Neck no lymphadenopathy Lymph Lymphatic: no lymphadenopathy noted Resp normal respiratory effort, normal air movement and clear to auscultation bilaterally Cardio regular rate, regular rhythm, S1 normal heart sound, S2 normal heart sound and no murmurs GI normal to inspection, nondistended, normoactive bowel sounds Extremity normal capillary refill Skin General Skin Exam: no breakdown Neuro no focal motor deficits and no sensory deficits noted Psych thought process normal and cooperative Mood & Affect: anxious Results Lab / Micro Data Result Diagrams: 10/13/22 20:15 10/13/22 20:15 Labs: Laboratory Results - last 24 hr 10/13/22 20:15: WBC 9.2, RBC 3.71 L, Hgb 11.7 L, Hct 36.0 L, MCV 97.0, MCH 31.5, MCHC 32.5, RDW Std Deviation 46.9 H, RDW Coeff of Linda 13.0, Plt Count 194, MPV 10.6, Immature Gran % (Auto) 0.400, Neut % (Auto) 73.3 H, Lymph % (Auto) 17.6 L, [place] % (Auto) 7.4, Eos % (Auto) 1.0, Baso % (Auto) 0.3, Absolute Neuts (auto) 6.8, Absolute Lymphs (auto) 1.63, Nucleated RBC % 0 10/13/22 20:15: Sodium 141, Potassium 4.6, Chloride 110 H, Carbon Dioxide 26.0, Anion Gap 5, BUN 35 H, Creatinine 1.47 H, Estim Creat Clear Calc 25.63, Est GFR (MDRD) Af Amer 44 L, Est GFR (MDRD) Non-Af 36 L, BUN/Creatinine Ratio 23.8 H, Glucose 145 H, Calcium 10.0, Total Bilirubin 0.40, AST 27, ALT 20, Alkaline Phosphatase 56, Troponin I High Sens 7, Total Protein 7.4, Albumin 3.9, Globulin 3.5, Albumin/Globulin Ratio 1.1 10/13/22 22:01: Urine Color Yellow, Urine Clarity Sl. Cloudy, Urine pH 5.0, Ur Specific [place] 1.020, Urine Protein 15 H, Urine Glucose (UA) Normal, Urine Ketones Negative, Urine Occult Blood 10 H, Urine Nitrite Negative, Urine Bilirubin Negative, Urine Urobilinogen Normal, Ur Leukocyte Esterase 500 H, Urine RBC 0 SEEN, Urine WBC 0-5 SEEN, Ur Squamous Epith Cells 0 SEEN, Calcium Oxalate Crystal 2+, Urine Bacteria 0 SEEN, Urine Mucus 0 SEEN Radiology Impression Chest X-Ray 10/13/22 20:49 IMPRESSION: No acute findings in the chest. Electronically Signed: John Vazquez MD at 21:16 EST , Assessment & Plan Assessment/Plan (1) Syncope: (2) History of chronic hypertension: PLAN: Plan 1 syncopal episode, admit patient overnight for observation to progressive care unit, order echocardiogram to be done in the morning, IV normal saline at 75 cc an hour overnight, CBC BMP in the morning. 2. History of hypertension?continue to monitor we will hold p.o. meds this evening 3. DVT prophylaxis?SCDs Charges/Coding Visit Charges OBSV E&M: 04037 Initial observation care L2
[2022-10-14] VITALS (7 sets, daily range): BP systolic 125–180; BP diastolic 54–83; PULSE 49–74; RESP 18–20; TEMP 36.6–37; O2SAT 97–98
[2022-10-14] MEDS: 0.9% Normal Saline 1,000 ML 75 ML IV ×2 (00:42→12:05)
[2022-10-14 05:15] LABS: Absolute Lymphocyte Count 1.94 X10^3/uL (0.83-4.51); Absolute Neutrophil Count 2.4 X10^3/uL (2.0-7.7); Basophil# 0.02 X10^3/uL; Basophil% 0.4 % (0-1); Eosinophil# 0.11 X10^3/uL; Eosinophils% 2.2 % (0-5); Hematocrit 32.2 % (37-47); Hemoglobin 10.5 g/dL (12.0-15.0); Lymphocyte # 1.94 X10^3/ul (0.83-4.51); Lymphocyte % 38.8 % (19-41); Mean Corp Hgb Conc 32.6 g/dL (32-36); Mean Corpuscular Hgb 32.2 pg (27.0-32.0); Mean Corpuscular Volume 98.8 fL (81-99); Mean Platelet Vol. 10.8 fl (6.2-12.0); Monocyte# 0.54 X10^3/uL; Monocyte% 10.8 % (0-10); NRBC Flagged by Analyzer 0 % (0-5); Neutrophil # 2.38 X10^3/uL (2.7-7.7); Neutrophil % 47.6 % (47-70); Platelet Count 165 K/mm3 (150-450); RBC Distribution Width CV 12.9 % (11.6-14.6); RBC Distribution Width SD 46.4 fl (35.1-43.9); Red Blood Count 3.26 M/mm3 (4.2-5.4)
[2022-10-14 05:32] LABS: Anion Gap 8 (5-15); BUN 31 mg/dL (7-18); Chloride 111 mmol/L (98-107); Creatinine, Serum 1.15 mg/dL (0.55-1.02); EST Glomerular Filtration Rate 48 mL/min (>60); Est Glom Filt Rate - Afr Amer 58 mL/min (>60); Estimated Creatinine Clearance 32.77 ml/min; Glucose 105 mg/dL (74-106); Potassium 4.1 mmol/L (3.5-5.1); Sodium Level 143 mmol/L (136-145)
--- NOTE | 2022-10-14 05:55 | ECHOD_ITS ---
Reason For Study: SYNCOPE Procedure This was a 2D Doppler, Color Flow transthoracic echocardiogram. The exam was of adequate technical quality. Exam performed portable in patient room. Left Ventricle Normal LV size. Left ventricular systolic function is normal. The estimated ejection fraction is 70 %. Stage 2 diastolic dysfunction. No regional wall motion abnormalities noted. Right Ventricle Normal RV size. Normal systolic function. Atria The left atrium is mildly enlarged. Normal right atrium. No doppler evidence for ASD. Mitral Valve There is moderate to severe mitral annular calcification. Extension of the mitral annular calcification onto the base of the posterior mitral valve leaflet. Mild (1+) mitral valve insufficiency. Tricuspid Valve Normal tricuspid valve. Mild to moderate (1-2+) tricuspid valve insufficiency. Right ventricular systolic pressure estimated to be 53 mmHg. Aortic Valve Trisinus/trileaflet aortic valve. Mild diffuse aortic valve thickening. Moderate focal aortic valve calcification. Mild aortic stenosis. Pulmonic Valve The pulmonic valve is not well visualized. Mild-Moderate (1-2+) pulmonic valve insufficiency. Great Vessels Normal sized aortic root. Calcified aortic root. Pericardium/Pleural No pericardial effusion. MMode/2D Measurements & Calculations RVDd: 3.7 cm LVOT diam: 2.0 cm Ao root diam: 2.9 cm LVOT area: 3.0 cm2 LAV(MOD-bp): 80.3 ml SV(MOD-sp4): 43.4 ml LVAd ap4: 22.3 cm2 LAV(MOD-bp) Indexed: 39.0 ml/m2 LVLd ap4: 7.1 cm LAV(MOD-sp2): 92.0 ml EDV(MOD-sp4): 57.1 ml LAV(MOD-sp4): 60.0 ml EDV(sp4-el): 59.2 ml LVAs ap4: 8.5 cm2 LVLs ap4: 4.8 cm ESV(MOD-sp4): 13.7 ml ESV(sp4-el): 13.0 ml EF(MOD-sp4): 76.0 % EF(sp4-el): 78.1 % SV(sp4-el): 46.2 ml LA A4 area: 24.1 cm2 LA dimension(2D): 3.8 cm RA A4 area: 19.0 cm2 Time Measurements MV dec time: 0.30 sec Doppler Measurements & Calculations MV E max constantine: 137.7 cm/sec Lat Peak E' Constantine: 10.0 cm/sec Med Peak E' Constantine: 7.5 cm/sec MV A max constantine: 135.2 cm/sec E/E' lat: 13.8 E/E' med: 18.4 MV E/A: 1.0 MV V2 max: 148.4 cm/sec MV dec slope: 464.4 cm/sec2 Ao V2 max: 249.3 cm/sec MV max P.8 mmHg Ao max P.0 mmHg MV V2 mean: 85.1 cm/sec Ao V2 mean: 170.2 cm/sec MV mean P.5 mmHg Ao mean P.1 mmHg MV V2 VTI: 52.5 cm Ao V2 VTI: 64.0 cm MVA(VTI): 2.2 cm2 AV (velocity ratio): 0.60 YANET(I,D): 1.8 cm2 YANET(V,D): 1.7 cm2 LV V1 max: 143.0 cm/sec SV(LVOT): 116.1 ml PA V2 max: 104.7 cm/sec LV V1 max P.2 mmHg PA V2 mean: 76.9 cm/sec LV V1 mean P.1 mmHg LV V1 mean: 108.4 cm/sec LV V1 VTI: 38.6 cm TR max constantine: 364.4 cm/sec TR max P.1 mmHg ECHO/Echo Complete Interpretation Summary Left ventricular systolic function is normal. The estimated ejection fraction is 70 %. The left atrium is mildly enlarged. There is moderate to severe mitral annular calcification. Extension of the mitral annular calcification onto the base of the posterior mi tral valve leaflet. Mild (1+) mitral valve insufficiency. Mild to moderate (1-2+) tricuspid valve insufficiency. Mild aortic stenosis. Mild-Moderate (1-2+) pulmonic valve insufficiency. Calcified aortic root. Right ventricular systolic pressure estimated to be 53 mmHg c/w pulmonary hyper tension. Stage 2 diastolic dysfunction. Ordering Physician: Indio Manzo Performed By: Marcela Skinner RCS
--- NOTE | 2022-10-14 17:02 | DCINST_ITS ---
Discharge Instructions Diet Discharge Diet: No restrictions Activity Discharge Activity: Return to Normal Activity Follow Up Care Test Results: Test results from this visit will be discussed in further detail at your follow- up appointment, if applicable. Discharge Plan Admission Admit Date/Time: 10/13/22 22:57 Primary Reason for Your Visit: Over exertion Attending Provider: Belkys Chambers Primary Care Provider: Mark Jaime Consulting Providers: Indio Manzo Instructions Patient Instructions: Dizziness Fainting Ch Additional Instructions / Restrictions: *Please take this with you to your next doctors appointment* ?It is indicated that you take Lasix as needed for edema but on admission he required fluids, would recommend weighing yourself daily and discussing with your primary care physician prior to resuming this. Can continue other home medications. ?You are found to have high blood pressure in your lungs called pulmonary hypertension as well as some calcification around her mitral valve and incomplete relaxation of your heart. These can be monitored as an outpatient, please discuss with your primary care physician and it may be advantageous to establish with a research associate professor for future monitoring. Will defer to primary care physician per your preference. -Please call your primary care provider's office upon discharge to schedule a hospital follow up within 1 week. -For any concerning signs or symptoms please call 911 or proceed to the nearest emergency department Discharge Orders/Prescriptions Prescriptions: Continued simvastatin [Zocor] 20 MG tablet 20 mg PO DAILY ferrous sulfate [Iron (ferrous sulfate)] 325 MG tablet 325 mg PO DAILY losartan 25 MG tablet 50 mg PO DAILY Centrum Silver Women 1 EACH tablet 1 ea PO DAILY cyanocobalamin (vitamin B-12) 500 MCG tablet 500 mcg PO DAILY@0800 calcium carbonate-vitamin D3 1 EACH tablet,chewable 1 ea PO DAILY cholecalciferol (vitamin D3) 2,000 UNIT capsule 2,000 unit PO DAILY ascorbic acid-ascorbate sodium 500 MG wafer 500 mg PO DAILY Probiotic 1 tab PO DAILY Held furosemide 20 mg tablet 20 mg PO DAILY PRN (Reason: Edema) Hold Instructions: Resume on 10/22/22. Discussed with your primary care physician prior to resuming Label Comments: TAKE 1 TABLET BY MOUTH ONCE DAILY NEEDED FOR LEG SWELLING Referrals / Follow Up: Mark Jaime DO [Primary Care Provider] - Within 1 Week Disposition Disposition (needs filled in before D/C Order can be placed): Home, Self Care
--- NOTE | 2022-10-14 17:09 | PCM.DC.SUM ---
Providers Date of Admission: 10/13/22 Date of Discharge: 10/14/22 Primary Care Physician: Dr. Mark Jaime DO Reason For Visit: Presycnope Diagnosis Discharge Diagnosis (1) History of chronic hypertension: Status: Chronic Code(s): Z86.79 - Personal history of other diseases of the circulatory system (2) Pre-syncope: Status: Acute Code(s): R55 - Syncope and collapse Medications at Discharge Home Medications ferrous sulfate 325 mg (65 mg iron) tablet (Iron (ferrous sulfate)) 325 mg PO DAILY 04/07/18 losartan 25 mg tablet 50 mg PO DAILY 04/07/18 multivit with [id number]-[id number]-ZL-lutein 8 mg iron-400 mcg-300 mcg tablet (Centrum Silver Women) 1 ea PO DAILY 04/07/18 simvastatin 20 mg tablet (Zocor) 20 mg PO DAILY 04/07/18 Probiotic 1 tab PO DAILY 05/21/19 ascorbic acid-ascorbate sodium (vitamin C) 500 mg oral wafer 500 mg PO DAILY 05/21/19 calcium carbonate 500 mg-vitamin D3 10 mcg (400 unit) chewable tablet 1 ea PO DAILY 05/21/19 cholecalciferol (vitamin D3) 50 mcg (2,000 unit) capsule 2,000 unit PO DAILY 05/21/19 cyanocobalamin (vitamin B-12) 500 mcg tablet 500 mcg PO DAILY@0800 05/21/19 furosemide 20 mg tablet 20 mg PO DAILY PRN Edema 10/13/22 Hospital Course Summary of Care Provided Minutes Spent on Discharge: 32 Hospital Course: Ms. Medrano is an 82-year-old female who presented to [facility] 10/14/2022 with an episode of presyncope. She had noted she worked out and then was up moving around all day and did not sit down and rest or take a nap like she usually does and then later in the day she became slightly dizzy and glassy eyed and her daughter sat her down. Denies any loss of consciousness or fall. This has not happened before and she feels she had overexerted herself. 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 Did have slight bump in creatinine and labs suggestive of slight volume depletion and did improve with fluids. Work-up otherwise unrevealing, had no further symptoms while here, no significant events on telemetry. Comfortable going home with outpatient follow-up with her primary care physician. Given multiple findings on echo, while do not feel needs further inpatient work-up, offered outpatient referral to cardiology but she would prefer to go through her primary care physician. Discussed with her and family at bedside and will discharge home in stable condition. Instructions for patient provided as below: *Please take this with you to your next doctors appointment* ?It is indicated that you take Lasix as needed for edema but on admission he required fluids, would recommend weighing yourself daily and discussing with your primary care physician prior to resuming this. Can continue other home medications. ?You are found to have high blood pressure in your lungs called pulmonary hypertension as well as some calcification around her mitral valve and incomplete relaxation of your heart. These can be monitored as an outpatient, please discuss with your primary care physician and it may be advantageous to establish with a real estate financial analyst for future monitoring. Will defer to primary care physician per your preference. -Please call your primary care provider's office upon discharge to schedule a hospital follow up within 1 week. -For any concerning signs or symptoms please call 911 or proceed to the nearest emergency department Physical Exam Const alert and no apparent distress Constitutional Narrative: Oriented HEENT normocephalic and head/scalp atraumatic Eyes Eyes Narrative: EOM grossly intact, anicteric Neck supple Resp normal respiratory effort and clear to auscultation bilaterally Cardio regular rate and regular rhythm GI soft to palpation, non-tender and non-distended Extremity Extremity Narrative: No edema appreciated Neuro moves all extremities Neuro Narrative: No overt focal deficits appreciated Psych Psych Narrative: Cooperative Weight / BMI Weight Weight: 99.79 kg Body Mass Index (BMI) 36.6 ABG / Lab / Microbiology Data Result Diagrams: 10/14/22 04:37 10/14/22 04:37 Laboratory: Laboratory Results - last 24 hr 10/13/22 20:15: WBC 9.2, RBC 3.71 L, Hgb 11.7 L, Hct 36.0 L, MCV 97.0, MCH 31.5, MCHC 32.5, RDW Std Deviation 46.9 H, RDW Coeff of Linda 13.0, Plt Count 194, MPV 10.6, Immature Gran % (Auto) 0.400, Neut % (Auto) 73.3 H, Lymph % (Auto) 17.6 L, Ballard % (Auto) 7.4, Eos % (Auto) 1.0, Baso % (Auto) 0.3, Absolute Neuts (auto) 6.8, Absolute Lymphs (auto) 1.63, Nucleated RBC % 0 10/13/22 20:15: Sodium 141, Potassium 4.6, Chloride 110 H, Carbon Dioxide 26.0, Anion Gap 5, BUN 35 H, Creatinine 1.47 H, Estim Creat Clear Calc 25.63, Est GFR (MDRD) Af Amer 44 L, Est GFR (MDRD) Non-Af 36 L, BUN/Creatinine Ratio 23.8 H, Glucose 145 H, Calcium 10.0, Total Bilirubin 0.40, AST 27, ALT 20, Alkaline Phosphatase 56, Troponin I High Sens 7, Total Protein 7.4, Albumin 3.9, Globulin 3.5, Albumin/Globulin Ratio 1.1 10/13/22 22:01: Urine Color Yellow, Urine Clarity Sl. Cloudy, Urine pH 5.0, Ur Specific Forsan 1.020, Urine Protein 15 H, Urine Glucose (UA) Normal, Urine Ketones Negative, Urine Occult Blood 10 H, Urine Nitrite Negative, Urine Bilirubin Negative, Urine Urobilinogen Normal, Ur Leukocyte Esterase 500 H, Urine RBC 0 SEEN, Urine WBC 0-5 SEEN, Ur Squamous Epith Cells 0 SEEN, Calcium Oxalate Crystal 2+, Urine Bacteria 0 SEEN, Urine Mucus 0 SEEN 10/14/22 04:37: WBC 5.0, RBC 3.26 L, Hgb 10.5 L, Hct 32.2 L, MCV 98.8, MCH 32.2 H, MCHC 32.6, RDW Std Deviation 46.4 H, RDW Coeff of Lnida 12.9, Plt Count 165, MPV 10.8, Immature Gran % (Auto) 0.200, Neut % (Auto) 47.6, Lymph % (Auto) 38.8, Ballard % (Auto) 10.8 H, Eos % (Auto) 2.2, Baso % (Auto) 0.4, Absolute Neuts (auto) 2.4, Absolute Lymphs (auto) 1.94, Nucleated RBC % 0 10/14/22 04:37: Sodium 143, Potassium 4.1, Chloride 111 H, Carbon Dioxide 24.0, Anion Gap 8, BUN 31 H, Creatinine 1.15 H, Estim Creat Clear Calc 32.77, Est GFR (MDRD) Af Amer 58 L, Est GFR (MDRD) Non-Af 48 L, BUN/Creatinine Ratio 27.0 H, Glucose 105, Calcium 9.0 Radiography Diagnostic Testing: Radiology Impression Chest X-Ray 10/13/22 20:49 IMPRESSION: No acute findings in the chest. Electronically Signed: John Vazquez MD at 21:16 EST , Echocardiogram 10/14/22 05:55 Interpretation Summary Left ventricular systolic function is normal. The estimated ejection fraction is 70 %. The left atrium is mildly enlarged. There is moderate to severe mitral annular calcification. Extension of the mitral annular calcification onto the base of the posterior mitral valve leaflet. Mild (1+) mitral valve insufficiency. Mild to moderate (1-2+) tricuspid valve insufficiency. Mild aortic stenosis. Mild-Moderate (1-2+) pulmonic valve insufficiency. Calcified aortic root. Right ventricular systolic pressure estimated to be 53 mmHg c/w pulmonary hypertension. Stage 2 diastolic dysfunction. Ordering Physician: Indio Manzo Performed By: Marcela Skinner RCS D/C Instructions Discharge Diet: No restrictions Meaningful Use Info Meaningful Use Diagnoses (Choose all that apply): None applicable Discharge Plan Admission Admit Date/Time: 10/13/22 22:57 Primary Reason for Your Visit: Over exertion Attending Provider: Belkys Chambers Primary Care Provider: Mark Jaime Consulting Providers: Indio Manzo Instructions Patient Instructions: Dizziness Fainting Ch Additional Instructions / Restrictions: *Please take this with you to your next doctors appointment* ?It is indicated that you take Lasix as needed for edema but on admission he required fluids, would recommend weighing yourself daily and discussing with your primary care physician prior to resuming this. Can continue other home medications. ?You are found to have high blood pressure in your lungs called pulmonary hypertension as well as some calcification around her mitral valve and incomplete relaxation of your heart. These can be monitored as an outpatient, please discuss with your primary care physician and it may be advantageous to establish with a real estate financial analyst for future monitoring. Will defer to primary care physician per your preference. -Please call your primary care provider's office upon discharge to schedule a hospital follow up within 1 week. -For any concerning signs or symptoms please call 911 or proceed to the nearest emergency department Discharge Orders/Prescriptions Prescriptions: Continued simvastatin [Zocor] 20 MG tablet 20 mg PO DAILY ferrous sulfate [Iron (ferrous sulfate)] 325 MG tablet 325 mg PO DAILY losartan 25 MG tablet 50 mg PO DAILY Centrum Silver Women 1 EACH tablet 1 ea PO DAILY cyanocobalamin (vitamin B-12) 500 MCG tablet 500 mcg PO DAILY@0800 calcium carbonate-vitamin D3 1 EACH tablet,chewable 1 ea PO DAILY cholecalciferol (vitamin D3) 2,000 UNIT capsule 2,000 unit PO DAILY ascorbic acid-ascorbate sodium 500 MG wafer 500 mg PO DAILY Probiotic 1 tab PO DAILY Held furosemide 20 mg tablet 20 mg PO DAILY PRN (Reason: Edema) Hold Instructions: Resume on 10/22/22. Discussed with your primary care physician prior to resuming Label Comments: TAKE 1 TABLET BY MOUTH ONCE DAILY NEEDED FOR LEG SWELLING Referrals / Follow Up: Mark Jaime DO [Primary Care Provider] - Within 1 Week Disposition Disposition (needs filled in before D/C Order can be placed): Home, Self Care Charges/Coding Visit Charges OBSV E&M: 65743 Observation care discharge
== END 2022-10-14 17:46 | disposition home or self-care (01) ==
LOC: ED 22:32 → PCU 23:12
PROVIDERS: Admitting Provider Family Medicine; Emergency Provider Emergency Medicine; PCP Student in an Organized Health Care Education/Training Program; Visit Provider Internal Medicine
DX: R55 Syncope and collapse (principal); M06.9 Rheumatoid arthritis, unspecified; D68.51 Activated protein C resistance; I10 Essential (primary) hypertension; E78.5 Hyperlipidemia, unspecified; R53.1 Weakness; Z79.899 Other long term (current) drug therapy; Z87.891 Personal history of nicotine dependence
CPT/HCPCS: 36415; 71045; 80048; 80053; 81001; 84484; 85025; 93005; 93306; 96360; 96361; 97162; 99218; 99285; J7030; J7040; A4216; G0378

== ENCOUNTER 2025-09-06 12:56 | Emergency (ER) | payer MEDICARE, BC, SELFPAY ==
[2025-09-06 12:57] VITALS: BP 166/80; PULSE 65; RESP 16; TEMP 36.6; O2SAT 98; BMI 36.1
--- NOTE | 2025-09-06 14:55 | EX.ED.GENINJ ---
HPI History of Present Illness Chief Complaint: Head Injury Detail of Chief Complaint: Patient had a mechanical fall. She hit her head against the sheet rock in Informant: patient Onset/Context/Timing Onset: Days (Incident occurred Thursday at patient's home) Mechanism/Context: Blunt Injury Location of pain/injuries: - (Pain over the occipital prominence on the left.) Location: Patient only has discomfort to palpation. Current Severity: Gone Maximum Severity: Moderate Worsened by: Palpation of the scalp Relieved by: No pressure to the area Associated Symptoms Associated Symptoms: Negative for Parasthesias, Weakness, Loss of function, Inability to ambulate, Loss of consciousness or Amnesia Narrative Narrative: Patient is an 85-year-old woman. She is not on antithrombotic or anticoagulant. She has history of hypertension and hypercholesterolemia. Patient lost her balance. She had left backside of her head against the sheet rock. She had no loss of conscious. She is not amnestic. She was not dazed. She denied headache. She complains of discomfort to palpation of the area. She denies double vision, blurred vision or loss of vision. Has ringing or ears decreased hearing. Denies trouble with speech or swallowing. She denies neck pain. She denied cardiac or respiratory symptoms. She denies nausea or vomiting. She denies problems with coordination or balance. She denies paresthesia or anesthesia upper or lower extremity. She contacted her physician's office who recommended she come to the emergency room for evaluation. Prior similar symptoms: No Recent Illness/Hospitalization: No [facility] Medical History Factor 5 Leiden mutation, heterozygous Rheumatoid arthritis Former smoker Hyperlipidemia Hypertension Home Medications ?Medication ?Instructions ?Recorded ?Last Taken ?Type ferrous sulfate 325 mg (65 mg 325 mg PO DAILY 04/07/18 Unknown History iron) tablet (Iron (ferrous sulfate)) losartan 25 mg tablet 50 mg PO DAILY 04/07/18 Unknown History [id number]-[id number]-dmtr 8 mg-folic 400 1 ea PO DAILY 04/07/18 Unknown History mcg-K 50 mcg-lutein 300 mcg tablet (Centrum Silver Women) simvastatin 20 mg tablet (Zocor) 20 mg PO DAILY 04/07/18 Unknown History Probiotic 1 tab PO DAILY 05/21/19 Unknown History ascorbic acid-ascorbate sodium 500 mg PO DAILY 05/21/19 Unknown History (vitamin C) 500 mg oral wafer calcium 500 mg (as carbonate)-vit 1 ea PO DAILY 05/21/19 Unknown History D3 10 mcg (400 unit) chewable tablet cholecalciferol (vitamin D3) 50 2,000 unit PO DAILY 05/21/19 Unknown History mcg (2,000 unit) capsule cyanocobalamin (vitamin B-12) 500 500 mcg PO DAILY@0800 05/21/19 Unknown History mcg tablet furosemide 20 mg tablet 20 mg PO DAILY PRN Edema 10/13/22 Unknown History Held on 10/14/22. Instructions: Resume on 10/22/22. Discussed with your primary care physician prior to resuming Allergy/AdvReac Type Severity Reaction Status Date / Time No Known Allergies Allergy Verified 09/06/25 12:59 Social History Smoking Status: Former smoker ROS ROS ED Eyes Eyes: Denies blurry vision or change in vision ENT ENT ED: Denies ear pain, rhinorrhea or sore throat Cardiovascular Cardiovascular: Denies chest pain or palpitations Respiratory/Chest Respiratory/Chest: Denies dyspnea Gastrointestinal Gastrointestinal: Denies nausea or vomiting Musculoskeletal Musculoskeletal: Denies neck pain Neurologic Neurologic: Denies headache(s), paresthesias or weakness Hematologic/Lymphatic Hematologic/Lymphatic: Denies easy bleeding or easy bruising EXAM Physical Exam Const Vital Signs: 09/06/25 12:57 Temperature 97.8 F Temperature Source Oral Pulse Rate 65 Respiratory Rate 16 Blood Pressure 166/80 H Blood Pressure Mean 108 Pulse Ox 98 Oxygen Delivery Method Room Air Positive well nourished and well developed Constitutional Narrative: Pleasant elderly woman who is in no distress. Blood pressure is elevated. General Appearance ED: well developed and NAD HEENT HEENT Narrative: Examination of the scalp reveals no evidence of trauma. There is some tenderness noted over the left occipital area. She has no discomfort with outpatient patient. Ears are normal. TMs are normal. There is no clinical signs of basal skull fracture. Eyes PERRL and EOMs intact bilaterally General Eye ED: Yes other Other Details: There is no nystagmus. Neck full ROM Chest Wall inspection of chest normal Resp normal respiratory effort Cardio regular rhythm Rate: regular rate Back/Spine normal to inspection and no thoracic nor lumbar tenderness Neuro oriented x3, CN's II-XII intact bilaterally, moves all extremities, no focal motor deficits, no sensory deficits noted and gait normal Neuro Narrative: She has no dysmetria. There is no clonus Babinski sign noted right or left. Motor Exam: strength 5/5 throughout Psych mental status grossly normal and thought process normal Skin no rashes or lesions noted, no wounds, skin turgor normal and no jaundice MDM MDM MDM Narrative Medical decision making narrative: Perfect this occurred 2 days ago with no evidence of trauma no loss of conscious no amnesia a normal neurologic exam based on the [place] CT head rule if this occurred day of the event [address] However with a normal neuroexam no complaint of headache and the only reason she is here is because her doctor recommended she come here after she called. Person who made her come states she made her come because they have had 2 friends that had intracranial bleeds. Patient and friend that accompanied her were informed with a normal neuroexam no symptoms and no evidence of trauma based on the [place] CT rule imaging is not mandated. Therefore we will discharge to home with appropriate home-going instructions History & Record Review Additional record(s) reviewed:: Prior inpatient record (Add admitted to the hospital for hypertension October 2022.) and Prior ED visit (Seen for GI bleed 05/[address] Dunlap) Discharge Plan Triage Chief Complaint: Head Injury ED Provider: Sergio Canela Dx/Rx/DC Orders Clinical Impression: Contusion of occipital region of scalp, History of chronic hypertension Instructions: ED Scalp Contusion Prescriptions: No Action simvastatin [Zocor] 20 MG tablet 20 mg PO DAILY ferrous sulfate [Iron (ferrous sulfate)] 325 MG tablet 325 mg PO DAILY losartan 25 MG tablet 50 mg PO DAILY Centrum Silver Women 1 EACH tablet 1 ea PO DAILY cyanocobalamin (vitamin B-12) 500 MCG tablet 500 mcg PO DAILY@0800 calcium carbonate-vitamin D3 1 EACH tablet,chewable 1 ea PO DAILY cholecalciferol (vitamin D3) 2,000 UNIT capsule 2,000 unit PO DAILY ascorbic acid-ascorbate sodium 500 MG wafer 500 mg PO DAILY Probiotic 1 tab PO DAILY furosemide 20 mg tablet 20 mg PO DAILY PRN (Reason: Edema) Patient Comments: TAKE 1 TABLET BY MOUTH ONCE DAILY NEEDED FOR LEG SWELLING Primary Care Provider: Mark Jaime Referrals: Mark Jaime, DO [Primary Care Provider, Medical] - As Needed Print Language: Yi Disposition Disposition: Home, Self Care
[2025-09-06 14:56] VITALS: BP 160/82; PULSE 85; RESP 16; O2SAT 99
[2025-09-06 15:04] VITALS: BP 160/82; PULSE 85; RESP 16; TEMP 37; O2SAT 99
== END 2025-09-06 15:07 | disposition home or self-care (01) ==
PROVIDERS: Emergency Provider Emergency Medicine; PCP Student in an Organized Health Care Education/Training Program; Visit Provider Emergency Medicine
DX: S00.03XA Contusion of scalp, initial encounter (principal); E78.00 Pure hypercholesterolemia, unspecified; I10 Essential (primary) hypertension; Z87.891 Personal history of nicotine dependence; W19.XXXA Unspecified fall, initial encounter
CPT/HCPCS: 99282